=== PATIENT | female | born 2000 | race Caucasian/White ===

== ENCOUNTER 2019-08-26 17:46 | Emergency (ER) | payer SELFPAY ==
[~2019-08-26] VITALS: Ht 157.5 cm; Wt 52.3 kg
[2019-08-26 17:52] VITALS: BP 112/76; TEMP 98.7
[2019-08-26] MEDS ORDERED: PRENATAL (18:32)
[2019-08-26 19:26] LABS: BASO # 0.1 (0.0-0.2); BASO % 0.6 % (0.0-2.0); EOS # 0.4 (0.0-0.7); EOS % 4.9 % (0-4.0); GRAN # 5.3 (1.4-6.5); GRAN % 59.3 % (42.2-75.2); HEMOGLOBIN 12.7 g/dl (12.5-16.0); LYMPH # 2.6 (1.2-3.4); MEAN CELL VOLUME 89 fl (80.0-100.0); MEAN CORPUSCULAR HEMOGLOBIN 31 pg (27.0-31.0); MEAN CORPUSCULAR HGB CONC 34 g/dl (33.0-37.0); MEAN PLATELET VOLUME 10.7 fl (7.4-10.4); MONO # 0.5 (0.1-0.6); MONO % 5.9 % (1.7-9.3); PLATELET COUNT 233 K/mm3 (130-400); RED BLOOD COUNT 4.16 M/mm3 (4.10-5.30); REDCELL DISTRIBUTION WIDTH-CV 12.9 % (11.5-14.5)
[2019-08-26 19:35] LABS: ALBUMIN 4.1 gm/dL (3.5-5.0); BILIRUBIN,TOTAL 0.3 mg/dL (0.0-1.0); CALCIUM 9.1 mg/dL (8.4-10.2); CREATININE, serum 0.46 (0.52-1.25); POTASSIUM 3.6 mmol/L (3.4-5.0); TOTAL PROTEIN 7.2 gm/dL (6.4-8.2)
[2019-08-26] MEDS ORDERED: ZOFRAN ODT4 MG SL ×2 (20:35→20:56)
[2019-08-26 21:08] LABS: COLLECTION METHOD CLEAN CATCH
[2019-08-26 21:17] LABS: MUCOUS Present /lpf; PH 5 (5-8); URINE APPEARANCE Clear; URINE BACTERIA None Seen /hpf; URINE BILIRUBIN Negative (NEGATIVE); URINE BLOOD Negative (NEGATIVE); URINE COLOR Yellow; URINE GLUCOSE Negative (NEGATIVE); URINE KETONE 2+ (NEGATIVE); URINE LEUKOCYTE ESTERASE Negative (NEGATIVE); URINE NITRATE Negative (NEGATIVE); URINE PROTEIN(semi-quant) 1+ (NEGATIVE); URINE RBC 0-2 /hpf; URINE UROBILINOGEN Negative (NEGATIVE)
[2019-08-26 21:29] VITALS: PULSE 84
== END 2019-08-26 21:29 | disposition home or self-care (01) ==
LOC: COL.ER 17:46
PROVIDERS: Emergency Medicine
DX: O21.9 Vomiting of pregnancy, unspecified (principal); Z3A.00 Weeks of gestation of pregnancy not specified
CPT/HCPCS: J2405; J7030

== ENCOUNTER 2020-01-27 15:01 | Outpatient (CLI) | payer MEDICAID ==
[~2020-01-27] VITALS: Ht 157.5 cm; Wt 59.1 kg
[~2020-01-27 15:01] MED LIST: PRENATAL; ZOFRAN ODT4 MG SL
--- NOTE | 2020-01-27 15:10 | NUR ---
Patient arrives ambulatory with FOB with complaints of possible SROM at 1000 on 01/26/2020. Patient denies cramping or contractions, denies bleeding and reports normal movement. records note late entry to care at 17 weeks and last seen in office at 25 weeks. Patient states "we were going to move to [place] but we haven't". Patient changes into gown, attempt to collect UDS for spotty care. Patient unable to void at this time but will try again soon. EFM explained and placed. VSS. 1515- Amniotrace negative. SVE per Lissette RN closed/thick/high with no fluid noted upon exam. Assessment completed. See physician notification.
[2020-01-27 15:12] VITALS: BP 114/68; PULSE 95
[2020-01-27 15:35] VITALS: BP 114/68; PULSE 95; TEMP 98.6
--- NOTE | 2020-01-27 15:50 | NUR ---
Discussing plan of care with patient for discharge. Reviewed labor precautions and kick counts. Patient encouraged to call office immediately to schedule next appt. Patient verbalizes understanding. Reactive FHR strip obtained, patient leaves unit with FOB.
[2020-01-27 16:25] LABS: TRICYCLIC ANTIDEPRESS URINE NEGATIVE
== END 2020-01-27 15:50 | disposition home or self-care (01) ==
LOC: LDRO 15:01
PROVIDERS: Obstetrics & Gynecology
DX: Z34.93 Encounter for supervision of normal pregnancy, unspecified, third trimester (principal); Z3A.32 32 weeks gestation of pregnancy